=== PATIENT | male | born 1995 ===

== ENCOUNTER 2016-12-19 10:51 | Emergency (ER) | payer OTHER ==
[2016-12-19 12:11] VITALS: BP 133/80
--- NOTE | 2016-12-19 12:18 | UC ---
Throat Pain/Nasal Han HPI - HPI Summary HPI Summary: complaint of cough and nasal congestion that started 2 days ago mild headache denies ear pain, throat pain denies fever but had some chills this morning feels very weak and fatigued this morning denies N/V/D has been taking nyquil and dayquil with minimal relief - History of Current Complaint Chief Complaint: UCRespiratory Stated Complaint: COUGH Time Seen by Provider: 12/19/16 12:11 - Allergies/Home Medications Allergies/Adverse Reactions: Allergies Allergy/AdvReac Type Severity Reaction Status Date / Time Penicillins Allergy Intermediate Vomiting Verified 12/19/16 12:04 PMH/Surg Hx/FS Hx/Imm Hx Previously Healthy: Yes - Surgical History Surgical History: None - Family History Known Family History: Positive: None Negative: Cardiac Disease, Hypertension, Diabetes - Social History Occupation: Student Alcohol Use: Weekly Substance Use Type: Marijuana Substance Use Comment - Amount & Last Used: DAILY Smoking Status (MU): Never Smoked Tobacco Household Exposure Type: Cigarettes Review of Systems Constitutional: Chills, Fatigue Skin: Negative Eyes: Negative ENT: Nasal Discharge Respiratory: Cough Cardiovascular: Negative Gastrointestinal: Negative Genitourinary: Negative Motor: Negative Neurovascular: Negative Musculoskeletal: Negative Neurological: Negative Psychological: Negative All Other Systems Reviewed And Are Negative: Yes Physical Exam Triage Information Reviewed: Yes Appearance: No Pain Distress, Well-Nourished Vital Signs: Initial Vital Signs Temp 99.6 F 12/19/16 12:04 Pulse 94 12/19/16 12:04 Resp 20 12/19/16 12:04 BP 133/80 12/19/16 12:04 Pulse Ox 99 12/19/16 12:04 Vital Signs Reviewed: Yes Eyes: Positive: Conjunctiva Clear ENT: Positive: Pharyngeal erythema, Nasal congestion, TMs normal. Negative: Tonsillar swelling, Tonsillar exudate Neck: Positive: No Lymphadenopathy Respiratory: Positive: Lungs clear, Normal breath sounds, No respiratory distress Cardiovascular: Positive: RRR, No Murmur, Pulses Normal Abdomen Description: Positive: Nontender, Soft Bowel Sounds: Positive: Present Musculoskeletal Exam: Normal Psychological Exam: Normal Skin Exam: Normal Throat Pain/Nasal Course/Dx - Course Course Of Treatment: exam complted. viral illness- most likely influenza. symptomatic treatment only - Differential Dx/Diagnosis Differential Diagnosis/HQI/PQRI: Influenza, URI, Other - bronchitis Provider Diagnoses: influenza Discharge - Discharge Plan Condition: Stable Disposition: HOME Prescriptions: Albuterol HFA INHALER* [Ventolin HFA Inhaler*] 2 puff INH Q4H PRN #1 mdi PRN Reason: Cough Spacer/Aerosol-Holding Chamber [Aerochamber Mv] 1 mis XX Q4HR #1 mis Patient Education Materials: Influenza (ED), Bronchospasm (ED) Referrals: Non Staff,Doctor [Primary Care Provider] - [facility] [Outside] Additional Instructions: Use your albuterol inhaler every 4-6 hours when needed for wheezing, shortness of breath or uncontrolled coughing. Increase fluids and rest Take acetaminophen or ibuprofen for fever or pain Please review your discharge instructions. If your symptoms do not improve please call your primary care provider or return to urgent care.
== END 2016-12-19 12:30 | disposition home or self-care (01) ==
LOC: UCCORT 10:51
DX: J11.1 Influenza due to unidentified influenza virus with other respiratory manifestations (principal); F12.90 Cannabis use, unspecified, uncomplicated; Z88.0 Allergy status to penicillin
CPT/HCPCS: 99212; G0463